=== PATIENT | male | born 1985 | race African-American/Black ===

== ENCOUNTER 2017-01-28 02:34 | Emergency (ER) | payer OTHER, SELFPAY ==
[2017-01-28] MEDS ORDERED: Adacel (T-DAP) 0.5 ML VIAL ONE (03:19)
[2017-01-28] MEDS ORDERED: Ketorolac Tromethamine 60 MG/2 ML VIAL ONE (03:19)
--- NOTE | 2017-01-28 08:24 | CT ---
PRELIMINARY REPORT/[facility]/EMERGENCY AFTER HOURS PROCEDURE: EXAM: CT Head Without Intravenous Contrast CLINICAL HISTORY: 31 years old, male; Injury or trauma; Fall; Initial encounter; Abrasion; Face; Patient HX: Er 7; Pt m31 presents to ed with C/O nose pain S/P falling about x15 min travel [place]. Pt states that he had been drin [place] and wasn't paying attention and fell and hit his nose. Pt states that he can hear a clicking when he touches it and has mild bleeding and abrasions to the r side. Pt denies any loc or nausea/vomiting. TECHNIQUE: Axial computed tomography images of the head/brain without intravenous contrast. COMPARISON: No relevant prior studies available. FINDINGS: Brain: Normal. Ventricles: Normal. Bones/joints: Partially visualized acute minimally displaced bilateral nasal bone fractures, with ov erlying soft tissue swelling and laceration. Rightward deviation of the bony nasal septum. Soft tissues: See above. Sinuses: Mild ethmoid sinus disease. Mastoid air cells: Fluid within the left mastoid air cells, which can be seen with mastoiditis. IMPRESSION: 1. No acute intracranial abnormality. 2. Partially visualized acute minimally displaced bilateral nasal bone fractures, with overlying sof t tissue swelling and laceration. 3. Incidental/non-acute findings are described above. Thank you for allowing us to participate in the care of your patient. Dictated and Authenticated by: Edin Jo MD 01/28/2017 3:40 AM Central Time ([place] \T\ [place]) FINAL REPORT EMERGENCY AFTER HOURS CT BRAIN WITHOUT CONTRAST: Date: 01/28/17 FINDINGS/IMPRESSION: I agree with the findings and impression given in the preliminary report per [facility] physician. No evid ence of acute intracranial abnormality. POS: [facility]
--- NOTE | 2017-01-28 08:26 | CT ---
PRELIMINARY REPORT/[facility]/EMERGENCY AFTER HOURS PROCEDURE: EXAM: CT Maxillofacial Without Intravenous Contrast CLINICAL HISTORY: 31 years old, male; Injury or trauma; Fall; Initial encounter; Abrasion; Nose; Patient HX: Er 7; Pt m31 presents to ed with C/O nose pain S/P falling about x15 min [employer]. Pt states that he had been drin teresita and wasn't paying attention and fell and hit his nose. Pt states that he can hear a clicking when he touches it and has mild bleeding and abrasions to the r side. Pt denies any loc or nausea/vomiting. TECHNIQUE: Axial computed tomography images of the face without intravenous contrast. Coronal and sagittal reformatted images were created and reviewed. COMPARISON: No relevant prior studies available. FINDINGS: Bones/joints: Acute, mildly displaced bilateral nasal bone fractures. Rightward deviation of the bon y nasal septum. Soft tissues: Moderate preseptal soft tissue swelling and lacerations. Orbits: Normal. Sinuses: Frontal, ethmoid, and bilateral maxillary sinus disease. Mastoid air cells: Fluid within the left mastoid air cells, which can be seen with mastoiditis. IMPRESSION: 1. Acute, mildly displaced bilateral nasal bone fractures. 2. Moderate preseptal soft tissue swelling and lacerations. 3. Incidental/non-acute findings are described above. Thank you for allowing us to participate in the care of your patient. Dictated and Authenticated by: Edin Jo MD 01/28/2017 3:43 AM Central Time ([place] \T\ [place]) FINAL REPORT EMERGENCY AFTER HOURS CT FACE WITHOUT CONTRAST: Date: 01/28/17 FINDINGS/IMPRESSION: I agree with the findings and impression given in the preliminary report per [facility] physician. There a re acute bilateral nasal bone fractures. POS: [facility]
== END 2017-01-28 03:47 | disposition home or self-care (01) ==
LOC: ERS 02:34
DX: S02.2XXA Fracture of nasal bones, initial encounter for closed fracture (principal); K21.9 Gastro-esophageal reflux disease without esophagitis; B20 Human immunodeficiency virus [HIV] disease; I25.2 Old myocardial infarction; F17.210 Nicotine dependence, cigarettes, uncomplicated; Z23 Encounter for immunization; W18.09XA Striking against other object with subsequent fall, initial encounter
CPT/HCPCS: 70450; 70486; 90471; 90715; 96372; J1885